=== PATIENT | male | born 1950 | race Caucasian/White ===

== ENCOUNTER → 2024-10-25 08:26 | Outpatient (REF) | payer MEDICARE, SELFPAY | LOC: HWRCS 08:26 | PROVIDERS: ATTENDING PHYSICIAN Nuclear Medicine Nuclear Cardiology; FAMILY PHYSICIAN Family Medicine | DX: I49.1 Atrial premature depolarization (principal); R94.31 Abnormal electrocardiogram [ECG] [EKG] | CPT/HCPCS: 93306 ==